=== PATIENT | female | born 1980 | race Caucasian/White ===

== ENCOUNTER 2022-01-30 08:55 | Emergency (ER) | payer MEDICARE, MEDICAID ==
[~2022-01-30] VITALS: Ht 165.1 cm; Wt 86.4 kg
[2022-01-30 09:13] VITALS: BP 145/88
== END 2022-01-30 10:28 | disposition home or self-care (01) ==
LOC: ER 08:55
DX: S93.402A Sprain of unspecified ligament of left ankle, initial encounter (principal); Z88.8 Allergy status to other drugs, medicaments and biological substances; W01.0XXA Fall on same level from slipping, tripping and stumbling without subsequent striking against object, initial encounter; Y93.89 Activity, other specified; Y92.89 Other specified places as the place of occurrence of the external cause; Y99.8 Other external cause status
CPT/HCPCS: 73610; 99284

== ENCOUNTER 2024-10-02 09:24 | Emergency (ER) | payer MEDICARE, MEDICAID ==
[~2024-10-02] VITALS: Ht 165.1 cm; Wt 86.3 kg
[2024-10-02 09:51] VITALS: TEMP 98.7
[2024-10-02 10:15] LABS: BILIRUBIN,URINE NEGATIVE (Neg); CLARITY,URINE CLEAR (Clear); COLOR,URINE YELLOW (Yellow); GLUCOSE, URINE NEGATIVE (Neg); KETONES,URINE NEGATIVE (Neg); LEUKOCYTE ESTERASE ,URINE NEGATIVE (Neg); NITRITES, URINE NEGATIVE (Neg); OCCULT BLOOD,URINE NEGATIVE (Neg); PROTEIN,URINE NEGATIVE (Neg); UROBILINOGEN,URINE 0.2 E.U/dL (0.2-1.0)
[2024-10-02 10:16] LABS: URINE HCG NEGATIVE (NEG)
[2024-10-02 10:17] LABS: UA COLLECTION TYPE VOIDED
[2024-10-02 10:46] LABS: BASOPHILS % (AUTO) 0.6 % (0-1); EOSINOPHILS # (AUTO) 0.1 X10'3 (0-0.9); EOSINOPHILS % (AUTO) 0.7 % (0-6); HEMATOCRIT 40.7 % (35.0-45.0); LYMPHOCYTES # (AUTO) 2.5 X10'3 (1.1-4.8); LYMPHOCYTES % (AUTO) 32.5 % (21-51); MEAN CORPUSCULAR HEMOGLOBIN 32.1 PG (27.0-31.0); MEAN CORPUSCULAR HGB CONC 34.3 g/dL (33.0-36.5); MEAN CORPUSCULAR VOLUME 93.4 FL (78-98); MEAN PLATELET VOLUME 7.6 FL (7.4-10.4); MONOCYTES # (AUTO) 0.4 X10'3 (0-0.9); MONOCYTES % (AUTO) 5.1 % (2-12); NEUTROPHILS # (AUTO) 4.6 X10'3 (1.8-7.7); NEUTROPHILS % (AUTO) 61.1 % (42-75); PLATELET COUNT 300 X10'3 (140-440); RED BLOOD COUNT 4.35 X10'6 (4.20-5.60); RED CELL DISTRIBUTION WIDTH 13.7 % (11.5-14.5); WHITE BLOOD COUNT 7.6 X10'3 (4.5-11.0)
--- NOTE | 2024-10-02 10:53 | Physician Documentation ---
History of Present Illness ~ Chief Complaint: Abdominal Pain w/vomiting Stated Complaint: ABD PAIN Time Seen by MD: 09:56 Primary Medical Doctor: Sharon Knutson MD Source: patient Mode of Arrival: POV Exam Limitations: no limitations HPI Chief Complaint: Abdominal pain Caveat: None Independent Historians: None History of Present Illness: Patient is a 44-year-old woman who comes in complaining of abdominal pain that began yesterday morning while at rest. Patient is unable to describe the pain. She states that it feels like fluid fills up. Patient states that the pain is in the right upper quadrant of her abdomen. Pain is worse with eating. Especially when eating spicy food. Naye ent has had nausea and vomited twice yesterday. No hematemesis. No blood in the stool. No diarrhea. Patient denies any alleviating factors for her pain. The pain has been constant. Pain is currently 7/10. Patient states that she has had similar pain intermittently for at least one year. Review of systems: All systems were reviewed and are negative except for what is indicated in the history of present illness. Past Medical History: Hypothyroidism, hypertension Past Surgical History: None Social History: No tobacco use, occasional alcohol use, denies drug use Medications: Reviewed as documented Nursing Notes Allergies: Reviewed as documented in Nursing Notes Last Menstrual Period: September 23, 2024 Medication Reconciliation Allergies: Coded Allergies: aripiprazole (Verified Allergy, Unknown, twitching, 10/02/24) paroxetine (Verified Allergy, Unknown, rash, 10/02/24) Scheduled Sucralfate (Carafate), 10 ML PO ACHS Past Medical History Past Medical History: No Pertinent History Last Menstrual Period: September 23, 2024 Alcohol Use: Rarely Drug Use: none Lives with: S/O Lives In: Home Review of Systems All Other Systems at this time: Reviewed and Negative ROS Patient denies any other acute symptoms other than above. All other systems are negative Physical Exam Vital Signs: RN Vital Signs have been reviewed: Yes, Temperature: 98.7, Source: Oral, Heart Rate: 76, Respiratory Rate: 16, BP: 143/85, Pulse Oximetry: 97, Weight: 86.300 Pulse Oximetry Reflects: adequate oxygenation Physical Exam General Appearance: Mild distress HEENT: Normal OP, moist oral mucosa, PERRL, EOMI Neck: supple, normal ROM, trachea midline Pulmonary: No respiratory distress, CTA, BS equal Cardiac: RRR, no murmur, rub or gallop, GI: nondistended, soft, focal mild tenderness over the right upper quadrant remaining quadrants are completely nontender, normal bowel sounds, no guarding, no rebound Extremities: normal ROM, no swelling, non-tender Skin: intact, dry, warm, no rashes Neuro: AAOx3, speech is clear, no focal motor weakness Psych: normal affect, good eye contact, no apparent hallucination, normal speech Progress Results/Orders Results/Orders Orders - ENEDELIA BRAUN MD Ultrasound Of Abdomen (10/02/24 10:49) Morphine 4mg/Ml Inj. (Morphine Inj.) (10/02/24 10:55) Completed Orders - ENEDELIA BRAUN MD Urinalysis, Cult If Indicated (10/02/24 09:54) Hcg, Ur Ql (10/02/24 09:54) Cbc/Diff (10/02/24 09:54) BMP (10/02/24 09:54) Lipase (10/02/24 09:54) CMP (10/02/24 09:54) Amylase (10/02/24 09:54) Ultrasound Of Abdomen (10/02/24 10:49) Ondansetron Inj. (Zofran 4mg/2ml Vial) (10/02/24 10:55) Normal Saline 1000ml (Sodium Chloride 10 (10/02/24 10:55) Mag & Alum Hydrox/Simeth Susp (Maalox Or (10/02/24 11:40) Sucralfate Tablet (Carafate Tablet) (10/02/24 11:40) Lidocaine 2% Viscous (Xylocaine 2% Visco (10/02/24 11:40) Medications Received in ER Medications (Trade) Dose Ordered Sig/Jose Route PRN Reason Start Time Stop Time Status Last Admin Dose Admin (Zofran 4mg/2ml vial) 4 mg ONCE ONCE IV 10/02/24 10:55 10/02/24 10:56 DC 10/02/24 11:41 4 MG (morphine inj.) 4 mg Q20M PRN IV moderate to severe pain 4-10 10/02/24 10:55 10/02/24 11:41 4 MG (sodium chloride 1000ml IV soln) 1,000 ml ONCE ONCE IVB 10/02/24 10:55 10/02/24 10:56 DC 10/02/24 11:44 1,000 ML (Maalox oral suspension) 30 ml ONCE ONCE PO 10/02/24 11:40 10/02/24 11:41 DC 10/02/24 12:24 30 ML (Carafate tablet) 1 gm ONCE ONCE PO 10/02/24 11:40 10/02/24 11:41 DC 10/02/24 12:23 1 GM (Xylocaine 2% Viscous 15mL cup) 20 ml ONCE ONCE MM 10/02/24 11:40 10/02/24 11:41 DC 10/02/24 12:24 20 ML Vital Signs 10/02/24 10/02/24 10/02/24 10/02/24 09:51 10:09 10:36 11:41 Temp 98.7 Pulse 88 76 Resp 18 16 16 16 B/P (MAP) 156/98 143/85 (104) Pulse Ox 98 97 10/02/24 11:46 Pulse 80 Resp 16 B/P (MAP) 139/81 (100) Pulse Ox 96 Laboratory Tests Test 10/02/24 10:00 10/02/24 10:20 Urine Specimen Description Voided Urine Color Yellow Urine Clarity Clear Urine pH 6.0 Urine Specific Perry 1.010 Urine Protein Negative Urine Glucose (UA) Negative Urine Ketones Negative Urine Occult Blood Negative Urine Nitrite Negative Urine Bilirubin Negative Urine Urobilinogen 0.2 Urine Leukocyte Esterase Negative Urine Culture Indicated Not ind Volume Urine Centrifuged 10 ml Urine HCG, Qualitative Negative Urine Comment White Blood Count 7.6 Red Blood Count 4.35 Hemoglobin 14.0 Hematocrit 40.7 Mean Corpuscular Volume 93.4 Mean Corpuscular Hemoglobin 32.1 H Mean Corpuscular Hemoglobin Concent 34.3 Red Cell Distribution Width 13.7 Platelet Count 300 Mean Platelet Volume 7.6 Neutrophils (%) (Auto) 61.1 Lymphocytes (%) (Auto) 32.5 Monocytes (%) (Auto) 5.1 Eosinophils (%) (Auto) 0.7 Basophils (%) (Auto) 0.6 Neutrophils # (Auto) 4.6 Lymphocytes # (Auto) 2.5 Monocytes # (Auto) 0.4 Eosinophils # (Auto) 0.1 Basophils # (Auto) 0.0 CBC Comment Sodium Level 139 Potassium Level 3.9 Chloride Level 102 Carbon Dioxide Level 24.6 Anion Gap 12 Blood Urea Nitrogen 9 Creatinine 0.80 Estimated GFR/1.73 m2 77 BUN/Creatinine Ratio 11.3 Glucose Level 114 H Calcium Level 8.9 Total Bilirubin 0.8 Aspartate Amino Transf (AST/SGOT) 20 Alanine Aminotransferase (ALT/SGPT) 31 Alkaline Phosphatase 85 Total Protein 7.6 Albumin 3.9 Globulin 3.7 Albumin/Globulin Ratio 1.1 Amylase Level 47 Lipase 34 Chemistry Comments Medical Decision Making Findings Differential diagnosis includes but is not limited to: Choledocholithiasis, cholecystitis, biliary colic, cholelithiasis, pancreatitis, gastritis, peptic ulcer disease, gastric ulcer, duodenitis, appendicitis Did abdominal ultrasound, indication: Upper abdominal pain Impression: Laboratory data independent interpretation: CBC: CMP: Toxicology: Serology: Urinalysis: Emergency department course/medical decision-making: Consultation/communications: Departure Time of Disposition: 11:42 Disposition: 01 HOME / SELF CARE / HOMELESS Impression: Primary Impression: Abdominal pain of unknown cause Additional Impression: Fatty liver Condition: Stable Discharge Instructions: Abdominal Pain, Adult, [id number], Fatty Liver Disease Additional Instructions: THE CAUSE FOR YOUR ABDOMINAL PAIN WAS NOT IDENTIFIED. THERE WAS NO EVIDENCE OF GALLSTONES OR GALLBLADDER INFECTION. YOUR PAIN MAY BE SECONDARY TO A GASTRITIS AND/OR AN ULCER. MEDICATION HAS BEEN PRESCRIBED. RECOMMEND YOU FOLLOW UP WITH YOUR PRIMARY CARE DOCTOR FOR CONTINUED CARE AND REFERRAL TO A BUSINESS INTELLIGENCE MANAGER FOR ENDOSCOPY. Prescriptions Sucralfate (Carafate) 1 Gram/10 Ml Oral.susp 10 ML PO ACHS for 15 Days, #600 ML 0 Refills before food and bedtime Prov: ENEDELIA BRAUN MD 10/02/24 Education Educated: Patient, Family Educated regarding: diagnosis, treatment Signature Scribe Signature: No scribe Attestation: No scribe ENEDELIA RBAUN MD October 02, 2024 10:53
[2024-10-02 11:01] LABS: ALANINE AMINOTRANSFERASE 31 U/L (12-78); ALBUMIN 3.9 G/DL (3.4-5.0); ALBUMIN/GLOBULIN RATIO 1.1 (1.1-1.5); ALKALINE PHOSPHATASE 85 IU/L (46-116); AMYLASE 47 U/L (25-115); ANION GAP 12 (8-16); ASPARTATE AMINO TRANSFERASE 20 U/L (10-37); BILIRUBIN,TOTAL 0.8 MG/DL (0.1-1.0); BLOOD UREA NITROGEN 9 MG/DL (7-18); BUN/CREATININE RATIO 11.3 (10.0-20.0); CALCIUM 8.9 MG/DL (8.5-10.1); CHLORIDE 102 MMOL/L (99-107); GLUCOSE 114 MG/DL (70-104); LIPASE 34 U/L (16-77); POTASSIUM 3.9 MMOL/L (3.5-5.1); SODIUM 139 MMOL/L (135-145); TOTAL CARBON DIOXIDE 24.6 MMOL/L (24-32); TOTAL PROTEIN 7.6 G/DL (6.4-8.2); eCRCL 79 ML/MIN; eGFR 77 ML/MIN
[2024-10-02] MEDS: morphine 4 MG/ML inj SYRINge IV PRN (11:41)
[2024-10-02] MEDS: ondansetron/PF 4mg/2ml inj IV ONE (11:41)
[2024-10-02] MEDS: normal saline 1000ML IV soln IVB ONE (11:44)
[2024-10-02] MEDS ORDERED: SUCR1ORA12 PO (11:45)
[2024-10-02 11:46] VITALS: RESP 16
--- NOTE | 2024-10-02 11:52 | RADIOLOGY REPORT ---
US ULTRASOUND OF ABDOMEN HISTORY: Abdominal Pain R/O Gallbladder COMPARISON: None TECHNIQUE: Transverse and longitudinal grayscale and color sonographic images were obtained of the ab domen. FINDINGS: Liver: - Size: 16.7 cm - Echogenicity: Hyperechoic - Surface Contour: Smooth - Liver Lesion(s): None - Portal Vein: Patent and forward flowing. - Bile Ducts: Normal. The common bile duct measures 2.9 mm. Gallbladder: Normal. The sonographic mead sign is negative. Pancreas: Portions not obscured by bowel gas are normal. Kidneys: - Right kidney size: 11.5 cm. There is no hydronephrosis, renal calculi, or mass lesion. Aorta and Inferior Vena Cava: The visualized portions of the abdominal aorta and intrahepatic vena ca va are normal. Other: None IMPRESSION: Hepatic steatosis.
[2024-10-02] MEDS: sucralfate 1 gm tablet PO ONE (12:23)
[2024-10-02] MEDS: mag hydrox/Alum hydrox/simeth 30ml oral suspension PO ONE (12:24)
[2024-10-02] MEDS: LIDOcaine 2% Viscous 15ml cup MM ONE (12:24)
[2024-10-02 14:00] VITALS: BP 144/87; PULSE 71; O2SAT 97
== END 2024-10-02 14:17 | disposition home or self-care (01) ==
LOC: ER 09:25
DX: K76.0 Fatty (change of) liver, not elsewhere classified (principal); R11.2 Nausea with vomiting, unspecified; E03.9 Hypothyroidism, unspecified; I10 Essential (primary) hypertension
CPT/HCPCS: 36415; 76700; 80053; 81003; 81025; 82150; 83690; 85025; 96361; 96374; 96375; 99285; J2270; J2405; J7030